=== PATIENT | male | born 1995 | race Caucasian/White ===

== ENCOUNTER 2024-11-07 08:50 | Emergency (ER) | payer OTHER, SELFPAY ==
[2024-11-07 09:00] VITALS: BP 147/95
[2024-11-07 09:28] LABS: % Basophils 0.7 % (0-2); % Eosinophils 2.2 % (0-6); % Immature Granulocytes 0.2 % (0-0.5); % Lymphocytes 29.3 % (20.5-51.1); % Monocytes 6.5 % (1.7-9.3); % Neutrophils 61.1 % (42.2-75.2); Absolute Eosinophils 0.1 10^3/uL (0-0.7); Absolute Lymphocytes 1.6 10^3/uL (1.2-3.4); Absolute Monocytes 0.4 10^3/uL (0.1-0.6); Absolute Neutrophils 3.3 10^3/uL (1.4-6.5); Hematocrit 48.7 % (39.0-52.0); Hemoglobin 17.3 g/dL (13.0-18.0); Mean Corp Hgb Conc. 35.5 g/dL (33.0-37.0); Mean Corpuscular Hgb 31.1 pg (27.0-31.0); Mean Corpuscular Volume 87.6 fL (80.0-94.0); Mean Platelet Volume 9.4 fL (7.4-10.4); Nucleated Red Blood Cells % 0 % (-); Platelet Count 269 10^3/uL (130-400); Red Blood Cell Count 5.56 10^6/uL (4.70-6.10); Red Cell Dist. Width 12.6 % (11.5-14.5); White Blood Cell Count 5.4 10^3/uL (4.8-10.8)
[2024-11-07 09:49] LABS: ALT (SGPT) 34 U/L (0-50); AST (SGOT) 23 U/L (17-59); Alkaline Phosphatase 62 U/L (38-126); Blood Urea Nitrogen 13 mg/dl (9-20); Calcium 9.7 mg/dl (8.4-10.2); Carbon Dioxide 26 mmol/L (22-30); Chloride 103 mmol/L (98-107); Glucose 107 mg/dl (70-99); Potassium 4.5 mmol/L (3.5-5.1); Sodium 140 mmol/L (135-145); Total Bilirubin 0.5 mg/dl (0.2-1.3); Total Protein 7.7 g/dl (6.3-8.2); eGFR > 60.00
[2024-11-07 09:51] LABS: Troponin I < 0.012 ng/ml
[2024-11-07 11:10] VITALS: BP 127/85
--- NOTE | 2024-11-07 12:55 | ED.GENMED ---
History of Present Illness
General
Chief Complaint: Chest Pain
Source: patient
Exam Limitations: none
Time Seen by Provider: 11/07/24 10:33
Nursing documentation reviewed up to this point in time: agreed with
History of Present Illness
History of Present Illness:
28-year-old male presenting to the emergency department today with concerns of a whooshing sound that is pulsatile to the right ear last night also some chest pain today. Ongoing symptoms this morning. Denies any recent fevers recent illness any
vascular disease.
Review of Systems
Review of Systems
Allergies reviewed?: Yes
All Other Systems: ROS reviewed and negative except as documented in HPI and ROS
Phy Exam
Physical Exam
Physical Exam:
GENERAL: Alert , in no apparent distress
EYE: pupils equal and reactive
NECK: Supple, no significant adenopathy.
ENT: o/p clr, mmm.
CARDIAC: Regular rate and rhythm .
LUNGS: Clear breath sounds bilaterally, no acute respiratory distress, no wheezes/rales/rhonchi
ABDOMEN: Soft, without focal tenderness, no r/g, no cvat
NEUROLOGICAL: Alert and oriented, no focal neuro deficits
SKIN: Warm and dry, skin intact.
MUSCULOSKELETAL: No edema, well perfused.
PSYCH: Normal and appropriate interaction.
Scores
Heart Score for Chest Pain Patients
STEMI patient?: No
History: Slightly or Non-Suspicious
ECG: Normal
Age: </= 45 years
Risk Factors: No Risk Factors
Troponin: </= Normal Limit
Heart Score for Chest Pain Patients: 0
Heart Score Risk: 2.5% MACE over next 6 weeks
Course
Orders/Labs/Results
Orders:
Orders
11/07/24 09:03
Electrocardiogram (*1) Urgent
Reason for Study: Other
Other Reason for Exam: chest problem
11/07/24 09:04
EKG- Treatment ONCE
11/07/24 09:15
Complete Blood Count/With Diff Urgent
Comprehensive Metabolic Panel Urgent
Troponin I Urgent
11/07/24 10:41
CT Head & Neck Angio W/wo IV Urgent
Comment:
Reason For Exam: right sided pulsatile tinnitus
Chest [CR Chest - 2 Views ] Urgent
Comment:
Reason For Exam: left chest pain
Abnormal Lab Results
11/07/24
09:15
MCH 31.1 H pg
(27.0-31.0)
Glucose 107 H mg/dl
(70-99)
11/07/24 09:15
11/07/24 09:15
Vital Signs
Initial and Last Documented VS:
Initial Vital Signs
Temp Pulse BP Pulse Ox
98.3 F 86 147/95 99
11/07/24 09:00 11/07/24 09:00 11/07/24 09:00 11/07/24 09:00
Last Documented Vital Signs
Temp Pulse Resp BP Pulse Ox
98.1 F 72 18 127/85 99
11/07/24 11:10 11/07/24 11:10 11/07/24 11:10 11/07/24 11:10 11/07/24 11:10
MDM/Problems Addressed
MDM/Problems Addressed:
28-year-old male presenting to the emergency department with concerns of worsening sensation to the right ear since last night now chest pain today. Chest x-ray normal here EKG normal labs unremarkable troponin negative ACS very unlikely no
evidence of emergent cardiac pathology. CT angiogram without acute abnormalities. Patient appears stable for outpatient management return precautions given.
*Critical Care Note
Total Time (30-74mins, 75-104mins- exclusive of procedures): Not Applicable
ED Attending Note
-
Portions of this chart may have been created with voice recognition software.� Occasional wrong word or��sound alike� substitutions may have occurred due to the inherent limitations of voice recognition software.
Discharge Plan
Departure
Patient Disposition: Home (Routine Discharge)
Date of Disposition: 11/07/24
Time of Disposition: 13:47
Patient with high blood pressure during this ER visit?: No
Condition: Good
Covid-19: Not Applicable
Discharge Problem:
Chest pain
Instructions: Chest Pain PCP Follow Up
Referrals:
Saleem Hollis MD [Family Provider] -
Activity Restrictions/Additional Instructions:
You came to the emergency department today with concerns of symptoms to your ear as well as chest. Here you had a reassuring assessment. Please follow closely with the primary care doctor. Return to the emergency department any worsening, new or
concerning symptoms.
Interventions
Interventions:
*Risk Screen - Suicide Last Done: 11/07/24 09:06
*General Assessment Last Done: 11/07/24 09:06
*Neglect/Abuse Screening Last Done: 11/07/24 09:06
*ED COVID-19 Vaccine History Last Done: 11/07/24 11:19
ED- Cardiac Assessment Last Done: 11/07/24 11:33
Discharge Date and Time
Print Language: TURKISH
[2024-11-07 14:39] VITALS: BP 130/86
== END 2024-11-07 14:41 | disposition home or self-care (01) ==
LOC: EMR 08:50
PROVIDERS: Emergency Medicine; EMERGENCY PHYSICIAN Student in an Organized Health Care Education/Training Program; FAMILY PHYSICIAN Family Medicine
DX: R07.89 Other chest pain (principal)
CPT/HCPCS: 99284; 70496; 70498; 71046; 80053; 84484; 85025; 93005; Q9967